=== PATIENT | female | born 1940 | race Caucasian/White ===

== ENCOUNTER 2017-08-14 14:32 | Inpatient (IN) | payer MEDICARE ==
[~2017-08-14] VITALS: Ht 147.3 cm; Wt 53.2 kg
[~2017-08-14 14:32] MED LIST: ASPIRIN CHEW81 MG PO; CLONAZEPAM0.5 MG PO; DEXILANT60 MG PO; DICYCLOMINE HCL10 MG PO; GABAPENTIN300 MG PO; HUMALOG100 UNIT/1 SQ; HYDROCODON-ACE1 EA12 PO; LANTUS100 UNITS/ SQ; LEVOTHYROXINE100 MCG PO; LIPITOR20 MG PO; LOSARTAN-HCTZ1 EAC2 PO; METOPROLOL TART25 MG PO; NORCO 5-325 TA1 EACH PO; NORCO 7.5-3251 EACH PO; ONDANSETRON ODT8 MG PO; PLAVIX75 MG PO; PROTONIX40 MG PO; RESTORIL15 MG PO; ROPINIROLE PO
[2017-08-14] MEDS ORDERED: SODIUM CHLORIDE 0.9% 1000ML 1,000 ML IV STA (15:24)
--- NOTE | 2017-08-14 15:24 | Diagnostic Imaging Report ---
EXAMINATION: Head CT HISTORY: Status post fall, trauma, pain COMPARISON: Head CT from 03/20/2014 TECHNIQUE: Multidetector axial images were obtained without contrast from the foramen magnum to the vertex . The images were reconstructed using brain and bone algorithms. Thin section brain images were reformatted into coronal and sagittal planes. Motion/streaking artifact limits the evaluation of the skull base and posterior cranial fossa. FINDINGS: Parenchyma: 1. Persistent mild chronic microvascular ischemic changes. Otherwise no abnormal density in the brain parenchyma. 2. No mass or hemorrhage. No CT evidence of acute territorial vascular insult. Extra-axial spaces:No abnormal density. No extra-axial fluid collections Brain volume: Normal for age. Ventricles: No hydrocephalus or displacement. Arteries: No density suggestive of thrombus. Dural sinuses: No abnormal density. Extra-axial spaces: No abnormal density. Foramen magnum: No mass, Chiari malformation, or basilar invagination. Sella: No obvious mass. Paranasal/mastoid sinuses: Imaged portions unremarkable. Skull/Scalp: No lytic or blastic lesions. No fractures. IMPRESSION: 1. No acute post traumatic intracranial abnormalities, particularly no hemorrhage. 2. Unchanged mild chronic microvascular ischemic changes. Signed by: Dr. Svetlana Cortes M.D. on 08/14/2017 3:20 PM
[2017-08-14] MEDS ORDERED: CEFTRIAXONE SOD 1 GM VIAL IV ONE (15:30)
[2017-08-14] MEDS ORDERED: KETOROLAC TROMETHAMINE 30 MG/ML VIAL IV ONE (15:45)
--- NOTE | 2017-08-14 16:17 | Diagnostic Imaging Report ---
PROCEDURE:HIP RIGHT 2-3 VW (+/- PELVIS) COMPARISON:To priors. INDICATIONS:FALL, RIGHT HIP AND LEG PAIN FINDINGS: BONES:No evidence of fracture or dislocation. Mild degenerative changes are present. The adjacent pubic rami appear intact. There is no diastases the pubic symphysis and sacroiliac joints. The left hip is intact with mild degenerative changes. There are moderate changes of the lower lumbar spine superimposed on dextroscoliosis. SOFT TISSUES:There are calcifications in the soft tissues and in the vascular structures. OTHER:Negative. CONCLUSION: No evidence of fracture or dislocation by x-ray. If there is persistent clinical concern, limited CT of the bony pelvis performed for further characterization. Dictated by: Kassandra Watt M.D. on 08/14/2017 at 16:27 Electronically approved by: Kassandra Watt M.D. on 08/14/2017 at 16:27
--- NOTE | 2017-08-14 16:19 | Diagnostic Imaging Report ---
PROCEDURE:FEMUR TWO VIEW MINIMUM RIGHT COMPARISON:Hip x-rays performed at the same time INDICATIONS:FALL, RIGHT HIP AND LEG PAIN FINDINGS: There are mild degenerative changes of the right hip. The femur is intact and normally mineralized without focal osseous lesions. A traction enthesophyte arises from the greater trochanter. There are degenerative changes of the knee. Visualized bones of the pelvis are intact. There calcifications in the soft tissues and in the vascular structures. CONCLUSION: No evidence of fracture or dislocation. Degenerative changes as described above. Dictated by: Kassandra Watt M.D. on 08/14/2017 at 16:29 Electronically approved by: Kassandra Watt M.D. on 08/14/2017 at 16:29
--- NOTE | 2017-08-14 18:36 | Diagnostic Imaging Report ---
TECHNIQUE: Magnetic resonance imaging of the pelvis and right hip was performed WITHOUT injected contrast using standard departmental protocols. HISTORY: Right hip pain COMPARISON: None. FINDINGS: Bone and bone marrow: Nondisplaced fracture of the intertrochanteric region of the right femur. No other fracture. Articular cartilage: Partial thickness cartilage loss. Soft tissues: Iliopsoas tendons intact. Mild proximal branching origin tendinosis. Gluteal tendon insertions are intact. Soft tissue edema adjacent to the right proximal femur. IMPRESSION: Nondisplaced right intertrochanteric femur fracture. Signed by: Dr. Kahlil Lassiter M.D. on 08/14/2017 6:33 PM
[2017-08-14] MEDS ORDERED: MORPHINE SULFATE 2 MG/ML SYR IV STA (19:57)
[2017-08-14 20:19] LABS: BASOPHILS # (AUTO) 0.1 (0.0-0.1); BASOPHILS % 0.5 % (0.0-1.0); EOSINOPHILS # (AUTO) 0.2 (0.0-0.4); EOSINOPHILS % 1.8 % (0.0-6.0); HEMATOCRIT 33.2 % (34.2-44.1); HEMOGLOBIN 11.3 g/dL (12.0-16.0); LYMPHOCYTES # (AUTO) 1.9 (1.0-3.2); LYMPHOCYTES % 20.4 % (18.0-39.1); MEAN CORPUSCULAR HEMOGLOBIN 28.6 pg (28-32); MEAN CORPUSCULAR VOLUME 84.1 fL (81-99); MONOCYTES # (AUTO) 0.6 (0.2-0.8); MONOCYTES % 6.9 % (4.4-11.3); NEUTROPHILS # (AUTO) 6.5 (2.1-6.9); NEUTROPHILS % 69.6 % (38.7-80.0); PLATELET COUNT 356 x10e3/uL (140-360); RED BLOOD COUNT 3.95 x10e6/uL (3.6-5.1); RED CELL DISTRIBUTION WIDTH 13.8 % (11.7-14.4)
[2017-08-14 20:26] LABS: INR 1.11; PROTHROMBIN TIME 13.5 seconds (11.9-14.5)
[2017-08-14 20:27] LABS: PARTIAL THROMBOPLASTIN TIME 27.2 seconds (23.8-35.5)
[2017-08-14] MEDS ORDERED: ASPIRIN 81 MG CHEW TAB PO ONE (20:30)
[2017-08-14 20:33] LABS: ALBUMIN 4.2 g/dL (3.5-5.0); ALBUMIN/GLOBULIN RATIO 1.1 (0.8-2.0); ANION GAP 15.3 mmol/L (8-16); CALCIUM 9.7 mg/dL (8.4-10.2); CREATININE, SERUM 1.07 mg/dL (0.57-1.11); POTASSIUM 4.3 mmol/L (3.5-5.1)
--- NOTE | 2017-08-14 20:46 | Diagnostic Imaging Report ---
Examination: Single AP view of the chest. COMPARISON: None. INDICATION: Preoperative evaluation DISCUSSION: Lines/tubes: None. Lungs: The lungs are well inflated and clear. No pneumonia or pulmonary edema. Pleura: There is no pleural effusion or pneumothorax. Heart and mediastinum: The heart and the mediastinum are unremarkable. Bones and soft tissues: No acute bony abnormalities. IMPRESSION: 1. No acute cardiopulmonary abnormalities. Signed by: Dr. Kahlil Lassiter M.D. on 08/14/2017 8:43 PM
[2017-08-14 20:50] LABS: BILIRUBIN,URINE NEGATIVE (NEGATIVE); CLARITY,URINE CLEAR (CLEAR); COLOR,URINE YELLOW (YELLOW); KETONES,URINE NEGATIVE (NEGATIVE); LEUKOCYTE ESTERASE ,URINE NEGATIVE (NEGATIVE); NITRITE,URINE NEGATIVE (NEGATIVE); PROTEIN,URINE DIPSTICK TRACE (NEGATIVE); URINE UROBILINOGEN 0.2 mg/dL (0.2 - 1)
[2017-08-14 20:58] LABS: CREATINE KINASE 68 IU/L (29-168)
[2017-08-14 21:07] LABS: EPITHELIAL CELLS,URINE RARE /LPF; MUCUS,URINE FEW (RARE); RBC,URINE 0-5 /HPF (0-5); WBC,URINE (MAN) 0-5 /HPF (0-5)
--- OUTSIDE RECORDS SUMMARY | 2017-08-14 21:56 | XMS REPORT ---
Author Author [facility] Address Unknown Phone Unavailable Care Team Providers Care Consumer Loan Processor Name Role Phone SARAHY RAMÍREZ Unavailable Unavailable Problems This patient has no known problems. Allergies, Adverse Reactions, Alerts This patient has no known allergies or adverse reactions. Medications This patient has no known medications. Results Test Description Test Time Test Comments Text Results Atomic Results Result Comments CHEST SINGLE (PORTABLE) [place] [address] Patient Name: DENISA SHIN MR #: [id number] : 1940 Age/Sex: 77/F Req #: [id number] Adm Physician: Ordered by: ANNI MEJIAS FIRST RESPONDER Report #: [id number] Location: ER Room/Bed: Procedure: [id number] DX/CHEST SINGLE (PORTABLE) Exam Date: Exam Time: REPORT STATUS: Signed Examination: Single AP view of the chest. COMPARISON: None. INDICATION: Preoperative evaluation DISCUSSION: Lines/tubes: None. Lungs: The lungs are well inflated and clear. No pneumonia or pulmonary edema. Pleura: There is no pleural effusion or pneumothorax. Heart and mediastinum: The heart and the mediastinum are unremarkable. Bones and soft tissues: No acute bony abnormalities. IMPRESSION: 1. No acute cardiopulmonary abnormalities. Signed by: Dr. Nathaniel Marie M.D. on 08/14/2017 8:43 PM Dictated By: NATHANIEL MARIE MD 42 Transcribed By: JAIME on 08/14/172042 COPY TO: ANNI MEJIAS NP MRI PELVIS WO [facility] [address] [address] Patient Name: DENISA SHIN MR #: [id number] : 1940 Age/Sex: 77/F Req #: [id number] Adm Physician: Ordered by: ANNI MEJIAS NP Report #: [id number] Location: ER Room/Bed: Procedure: [id number] MRI/MRI PELVIS WO Exam Date: Exam Time: REPORT STATUS: Signed TECHNIQUE: Magnetic resonance imaging of the pelvis and right hip was performed WITHOUT injected contrast using standard departmental protocols. HISTORY: Right hip pain COMPARISON: None. FINDINGS: Bone and bone marrow: Nondisplaced fracture of the intertrochanteric region of the right femur. No other fracture. Articular cartilage: Partial thickness cartilage loss. Soft tissues: Iliopsoas tendons intact. Mild proximal branching origin tendinosis. Gluteal tendon insertions are intact. Soft tissue edema adjacent to the right proximal femur. IMPRESSION: Nondisplaced right intertrochanteric femur fracture. Signed by: Dr. Nathaniel Marie M.D. on 06/2018 6:33 PM Dictated By: NATHANIEL MARIE MD 32 Transcribed By: JAIME on 08/14/171832 COPY TO: ANNI MEJIAS NP MRI HIP RIGHT WO [facility] [address] [address] Patient Name: DENISA SHIN MR #: [id number] : 1940 Age/Sex: 77/F Req #: [id number] Adm Physician: Ordered by: ANNI MEJIAS NP Report #: [id number] Location: ER Room/Bed: Procedure: [id number] MRI/MRI HIP RIGHT WO Exam Date: Exam Time: REPORT STATUS: Signed TECHNIQUE: Magnetic resonance imaging of the pelvis and right hip was performed WITHOUT injected contrast using standard departmental protocols. HISTORY: Right hip pain COMPARISON: None. FINDINGS: Bone and bone marrow: Nondisplaced fracture of the intertrochanteric region of the right femur. No other fracture. Articular cartilage: Partial thickness cartilage loss. Soft tissues: Iliopsoas tendons intact. Mild proximal branching origin tendinosis. Gluteal tendon insertions are intact. Soft tissue edema adjacent to the right proximal femur. IMPRESSION: Nondisplaced right intertrochanteric femur fracture. Signed by: Dr. Nathaniel Marie M.D. on 06/2018 6:33 PM Dictated By: NATHANIEL MARIE MD 32 Transcribed By: JAIME on 08/14/171832 COPY TO: ANNI MEJIAS FIRST RESPONDER CT BRAIN WO [facility] [address] [place] [address] Patient Name: DENISA SHIN MR #: [id number] : 1940 Age/Sex: 77/F Req #: [id number] Adm Physician: Ordered by: ANNI MEJIAS NP Report #: [id number] Location: ER Room/Bed: Procedure: [id number] CT/CT BRAIN WO Exam Date: Exam Time: REPORT STATUS: Signed EXAMINATION: Head CT HISTORY: Status post fall, trauma, pain COMPARISON: Head CT from 03/20/2014 TECHNIQUE : Multidetector axial images were obtained without contrast from the foramen magnum to the vertex . The images were reconstructed using brain and bone algorithms. Thin section brain images were reformatted into coronal and sagittal planes. Motion/streaking artifact limits the evaluation of the skull base and posterior cranial fossa. FINDINGS: Parenchyma: 1. Persistent mild chronic microvascular ischemic changes. Otherwise no abnormal density in the brain parenchyma. 2. No mass or hemorrhage. No CT evidence of acute territorial vascular insult. Extra-axial spaces:No abnormal density. No extra-axial fluid collections Brain volume: Normal for age. Ventricles: No hydrocephalus or displacement. Arteries : No density suggestive of thrombus. Dural sinuses: No abnormal density. Extra-axial spaces: No abnormal density. Foramen magnum : No mass, Chiari malformation, or basilar invagination. Sella: No obvious mass. Paranasal/mastoid sinuses: Imaged portions unremarkable. Skull/Scalp: No lytic or blastic lesions. No fractures. IMPRESSION: 1. No acute post traumatic intracranial abnormalities, particularly no hemorrhage. 2. Unchanged mild chronic microvascular ischemic changes. Signed by: Dr. Cathryn Cortes M.D. on 08/14/2017 3:20 PM Dictated By: CATHRYN CORTES MD 1520 COPY TO: ANNI MEJIAS FIRST RESPONDER HIP RIGHT 2-3 VW (+/- PELVIS) [place] [address] Patient Name: DENISA SHIN MR #: [id number] : 1940 Age/Sex: 77/F Req #: [id number] [facility] Physician: Ordered by: ANNI MEJIAS NP Report #: [id number] Location: ER Room/Bed: ___ Procedure: [id number] DX/HIP RIGHT 2-3 VW (+/- PELVIS) Exam Date: Exam Time: REPORT STATUS: Signed PROCEDURE: HIP RIGHT 2-3 VW (+/- PELVIS) COMPARISON: To priors. INDICATIONS: FALL, RIGHT HIP AND LEG PAIN FINDINGS: BONES: No evidence of fracture or dislocation. Mild degenerative changes are present. The adjacent pubic rami appear intact. There is no diastases the pubic symphysis and sacroiliac joints. The left hip is intact with mild degenerative changes. There are moderate changes of the lower lumbar spine superimposed on dextroscoliosis. SOFT TISSUES: There are calcifications in the soft tissues and in the vascular structures. OTHER: Negative. CONCLUSION: No evidence of fracture or dislocation by x-ray. If there is persistent clinical concern, limited CT of the bony pelvis performed for further characterization. Dictated by: Kassandra Watt M.D. on 08/14/2017 at 16:27 Electronically approved by: Kassandra Watt M.D. on 08/14/2017 at 16:27 Dictated By: KASSANDRA WATT MD 26 Transcribed By: MEENA on 08/14/171626 COPY TO: ANNI MEJIAS NP FEMUR TWO VIEW MINIMUM RIGHT [place] [address] Patient Name: DENISA SHIN MR #: [id number] : 1940 Age/Sex: 77/F Req #: [id number] Adm Physician: Ordered by: ANNI MEJIAS NP Report #: [id number] Location: ER Room/Bed: ___ Procedure: [id number] DX/FEMUR TWO VIEW MINIMUM RIGHT Exam Date: Exam Time: REPORT STATUS: Signed PROCEDURE: FEMUR TWO VIEW MINIMUM RIGHT COMPARISON: Hip x-rays performed at the same time INDICATIONS: FALL, RIGHT HIP AND LEG PAIN FINDINGS: There are mild degenerative changes of the right hip. The femur is intact and normally mineralized without focal osseous lesions. A traction enthesophyte arises from the greater trochanter. There are degenerative changes of the knee. Visualized bones of the pelvis are intact. There calcifications in the soft tissues and in the vascular structures. CONCLUSION: No evidence of fracture or dislocation. Degenerative changes as described above. Dictated by: Kassandra Watt M.D. on 08/14/2017 at 16:29 Electronically approved by: Kassandra Watt M.D. on 08/14/2017 at 16:29 Dictated By: KASSANDRA WATT MD Transcribed By: MEENA on 08/14/176 COPY TO: ANNI MEJIAS NP
[2017-08-14 22:00] VITALS: BP 162/71
[2017-08-14] MEDS: INSULIN REGULAR, HUMAN 100 UNIT/1 ML 3ML VIAL SQ SCH (22:03)
[2017-08-15] VITALS (9 sets, daily range): BP systolic 119–166; BP diastolic 63–71
[2017-08-15] MEDS: ONDANSETRON HCL INJ 2 MG/ML VIAL IV PRN ×3 (02:48→15:48)
[2017-08-15] MEDS: MORPHINE SULFATE 2 MG/ML SYR IV PRN ×3 (02:48→15:48)
[2017-08-15] MEDS: INSULIN REGULAR, HUMAN 100 UNIT/1 ML 3ML VIAL SQ SCH ×4 (07:30→20:19)
--- NOTE | 2017-08-15 11:11 | History and Physical ---
CHIEF COMPLAINT: Fall. HISTORY OF PRESENT ILLNESS: A 77-year-old female patient with a history of diabetes mellitus, neuropathy, tripped and fell at home 5 days ago. Patient was having pain on weightbearing, and not used for a few days. Patient came to the emergency room. Patient had an x-ray that was negative. MRI positive findings for nondisplaced fracture of the intertrochanteric right femur. Patient is admitted for fixation. PAST MEDICAL HISTORY: Diabetes mellitus, diabetic neuropathy, retinopathy, esophageal stricture with dilatation, hypertension, chronic pain, osteoporosis. MEDICATIONS: Insulin, [place], gabapentin. PERSONAL HISTORY: Denies smoking, alcohol or drugs. PHYSICAL EXAMINATION VITALS: Blood pressure 118/70, pulse 80. HEENT: Normal. NECK: Supple. LUNGS: Clear. ABDOMEN: Soft. Bowel sounds normal. EXTREMITIES: Right femoral hip tender. MRA with nondisplaced right intertrochanteric femur fracture. ASSESSMENT 1. Right intertrochanteric femur fracture. 2. Diabetes mellitus. 3. Fall. PLAN: Admit the patient. Ortho consultation. Resume home medications. Pain control. Job#: [id number] IDANIA
[2017-08-15] MEDS: SODIUM CHLORIDE 0.45% 1,000 ML IV SCH ×2 (12:14→22:00)
[2017-08-15] MEDS: GABAPENTIN 300 MG CAP PO SCH ×2 (15:48→20:18)
[2017-08-15] MEDS: INSULIN DETEMIR 100 UNIT/ML PEN SQ SCH (16:38)
[2017-08-15] MEDS: DEXTROSE 50% SYRINGE 50 ML IV PRN (16:58)
[2017-08-15] MEDS: METOPROLOL TARTRATE 25 MG TAB PO SCH (17:14)
[2017-08-15] MEDS: TEMAZEPAM 15 MG CAP PO SCH (20:18)
[2017-08-15] MEDS ORDERED: SODIUM CHLORIDE 0.45% 1,000 ML IV SCH (23:00)
[2017-08-16] VITALS: BP 152/72
[2017-08-16] MEDS: MORPHINE SULFATE 2 MG/ML SYR IV PRN ×4 (00:07→16:40)
[2017-08-16] MEDS: ONDANSETRON HCL INJ 2 MG/ML VIAL IV PRN (00:07)
[2017-08-16] MEDS: PANTOPRAZOLE SODIUM 40 MG SUSPDR.PKT PO SCH (08:09)
[2017-08-16] MEDS: INSULIN REGULAR, HUMAN 100 UNIT/1 ML 3ML VIAL SQ SCH ×4 (08:11→21:03)
[2017-08-16] MEDS: SODIUM CHLORIDE 0.45% 1,000 ML IV SCH ×2 (08:11→11:44)
[2017-08-16] MEDS: CLONAZEPAM 0.5 MG TAB PO SCH (08:12)
[2017-08-16] MEDS: INSULIN DETEMIR 100 UNIT/ML PEN SQ SCH ×2 (08:13→17:10)
[2017-08-16] MEDS: METOPROLOL TARTRATE 25 MG TAB PO SCH ×2 (08:13→17:10)
[2017-08-16] MEDS: DICYCLOMINE HCL 10 MG CAP PO SCH (08:13)
[2017-08-16] MEDS: GABAPENTIN 300 MG CAP PO SCH ×3 (08:13→21:03)
[2017-08-16 08:44] VITALS: BP 167/73
[2017-08-16 09:30] LABS: ANION GAP 15.3 mmol/L (8-16); CALCIUM 8.6 mg/dL (8.4-10.2); CREATININE, SERUM 1.05 mg/dL (0.57-1.11); POTASSIUM 4.3 mmol/L (3.5-5.1)
[2017-08-16 09:56] VITALS: BP 167/73
[2017-08-16 12:18] VITALS: BP 156/69
[2017-08-16] MEDS ORDERED: SODIUM CHLORIDE 0.9% 250ML 250 ML IV ONE (14:15)
[2017-08-16] MEDS: SODIUM CHLORIDE 0.9% 1000ML 1,000 ML IV SCH (15:50)
[2017-08-16] MEDS ORDERED: SODIUM CHLORIDE 0.9% 1000ML 1,000 ML ONE (15:53)
[2017-08-16 16:38] VITALS: BP 128/59
[2017-08-16 17:48] LABS: BLOOD UREA NITROGEN 13 mg/dL (7-26); BUN/CREATININE RATIO 15 (6-25); CALCIUM 8.4 mg/dL (8.4-10.2); CARBON DIOXIDE 21 mmol/L (22-29); CHLORIDE 90 mmol/L (98-107); CREATININE, SERUM 0.89 mg/dL (0.57-1.11); EST GLOMERULAR FILTRATION RATE > 60 ML/MIN (60-); GLUCOSE 302 mg/dL (74-118); SODIUM 122 mmol/L (136-145)
[2017-08-16 18:10] LABS: THYROID STIMULATING HORMONE 5.516 uIU/mL (0.350-4.940)
[2017-08-16] MEDS ORDERED: MAGNESIUM SULFATE 2GM/50ML 50 ML IV ONE ×2 (18:15→23:00)
[2017-08-16 20:00] VITALS: BP 116/67
[2017-08-16] MEDS: ATORVASTATIN 40 MG TAB PO SCH (21:03)
[2017-08-16] MEDS: TEMAZEPAM 15 MG CAP PO SCH (21:03)
[2017-08-17] VITALS (9 sets, daily range): BP systolic 137–173; BP diastolic 64–74
[2017-08-17] MEDS ORDERED: ENOXAPARIN SOD INJ 40 MG/0.4 ML SYR SC ONE (02:30)
[2017-08-17] MEDS: ACETAMINOPHEN 325 MG TAB PO PRN ×3 (02:35→23:51)
[2017-08-17] MEDS ORDERED: CEFAZOLIN SOD 2 GM in WATER STERILE 10ML VIAL 10 ML IV ONE (04:00)
[2017-08-17] MEDS ORDERED: CEFAZOLIN SOD 2 GM in WATER STERILE 10ML VIAL 10 ML IV SCH (04:15)
[2017-08-17] MEDS: LEVOTHYROXINE SODIUM 100 MCG TAB PO SCH (05:36)
[2017-08-17] MEDS: MORPHINE SULFATE 2 MG/ML SYR IV PRN ×2 (06:07→14:57)
[2017-08-17] MEDS: SODIUM CHLORIDE 0.9% 1000ML 1,000 ML IV SCH ×3 (06:20→19:59)
[2017-08-17 07:01] LABS: BASOPHILS % 0.3 % (0.0-1.0); EOSINOPHILS # (AUTO) 0.1 (0.0-0.4); EOSINOPHILS % 0.4 % (0.0-6.0); HEMATOCRIT 27.5 % (34.2-44.1); HEMOGLOBIN 9.1 g/dL (12.0-16.0); LYMPHOCYTES # (AUTO) 1.5 (1.0-3.2); LYMPHOCYTES % 12.3 % (18.0-39.1); MEAN CORPUSCULAR HEMOGLOBIN 28.7 pg (28-32); MEAN CORPUSCULAR HGB CONC 33.1 g/dL (31-35); MEAN CORPUSCULAR VOLUME 86.8 fL (81-99); MONOCYTES # (AUTO) 1.1 (0.2-0.8); MONOCYTES % 9.1 % (4.4-11.3); NEUTROPHILS # (AUTO) 9.2 (2.1-6.9); NEUTROPHILS % 77.5 % (38.7-80.0); PLATELET COUNT 290 x10e3/uL (140-360); RED BLOOD COUNT 3.17 x10e6/uL (3.6-5.1); RED CELL DISTRIBUTION WIDTH 13.6 % (11.7-14.4)
[2017-08-17 07:24] LABS: ALANINE AMINOTRANSFERASE 6 IU/L (0-55); ALBUMIN 2.9 g/dL (3.5-5.0); ALBUMIN/GLOBULIN RATIO 0.9 (0.8-2.0); ALKALINE PHOSPHATASE 101 IU/L (40-150); ANION GAP 13.9 mmol/L (8-16); BLOOD UREA NITROGEN 11 mg/dL (7-26); BUN/CREATININE RATIO 13 (6-25); CALCIUM 8.6 mg/dL (8.4-10.2); CARBON DIOXIDE 20 mmol/L (22-29); CHLORIDE 94 mmol/L (98-107); CREATININE, SERUM 0.86 mg/dL (0.57-1.11); EST GLOMERULAR FILTRATION RATE > 60 ML/MIN (60-); GLUCOSE 230 mg/dL (74-118); POTASSIUM 3.9 mmol/L (3.5-5.1); SODIUM 124 mmol/L (136-145)
[2017-08-17] MEDS: INSULIN REGULAR, HUMAN 100 UNIT/1 ML 3ML VIAL SQ SCH ×4 (08:09→20:39)
[2017-08-17] MEDS: DICYCLOMINE HCL 10 MG CAP PO SCH (08:16)
[2017-08-17] MEDS: CLONAZEPAM 0.5 MG TAB PO SCH (08:16)
[2017-08-17] MEDS: METOPROLOL TARTRATE 25 MG TAB PO SCH ×2 (08:16→17:24)
[2017-08-17] MEDS: GABAPENTIN 300 MG CAP PO SCH ×3 (08:16→20:32)
[2017-08-17] MEDS: INSULIN DETEMIR 100 UNIT/ML PEN SQ SCH ×2 (08:16→17:24)
[2017-08-17] MEDS: PANTOPRAZOLE SODIUM 40 MG SUSPDR.PKT PO SCH (08:16)
[2017-08-17] MEDS ORDERED: CITRATE OF MAGNESIA 300ML BOTTLE PO ONE (09:00)
[2017-08-17] MEDS: SODIUM CHLORIDE 1 GM TAB PO SCH ×2 (15:16→20:32)
[2017-08-17 15:19] LABS: BILIRUBIN,URINE NEGATIVE (NEGATIVE); KETONES,URINE NEGATIVE (NEGATIVE); LEUKOCYTE ESTERASE ,URINE NEGATIVE (NEGATIVE); NITRITE,URINE NEGATIVE (NEGATIVE); URINE UROBILINOGEN 0.2 mg/dL (0.2 - 1)
[2017-08-17 15:20] LABS: CLARITY,URINE SL CLOUDY (CLEAR); COLOR,URINE YELLOW (YELLOW); PROTEIN,URINE DIPSTICK TRACE (NEGATIVE)
--- NOTE | 2017-08-17 15:47 | Consultation ---
DATE OF CONSULTATION: August 17, 2017 HISTORY OF PRESENT ILLNESS: A 77-year-old female with right hip fracture, currently on the floor. Renal consulted for hyponatremia. Most recent labs showed sodium 124, potassium 3.9, chloride 94, bicarbonate 20, BUN 11, and creatinine 0.86. Patient is awake and alert, was actually asleep when I walked in. She denies any specific complaints and following all commands. Patient admits that she has had prior episodes of hyponatremia. She has history of hypothyroidism, type 2 diabetes, peripheral neuropathy, retinopathy, prior esophageal strictures and dilatation, history of chronic pain, and osteoporosis. SOCIAL HISTORY: Does not smoke or drink. ALLERGIES: NO APPARENT DRUG ALLERGIES. CURRENT MEDICATIONS: Patient is on clonazepam, metoprolol, Tylenol p.r.n., cefazolin, dicyclomine, pantoprazole, insulin, gabapentin, atorvastatin, and levothyroxine 100 mcg daily. Also on losartan and hydrochlorothiazide at home which has not been renewed here. PHYSICAL EXAMINATION GENERAL: Awake and alert, lying supine, thin-built female, in no apparent distress. Has a relatively short stature, in no apparent distress. VITALS: Blood pressure of 159/71, pulse rate 77, afebrile, and respiratory rate 18. HEENT: Oral mucosa dry. Neck veins flat. LUNGS: Supine exam, but relatively clear. HEART: S1, S2 audible. ABDOMEN: Otherwise soft and nontender. LOWER EXTREMITY: No edema. Contraction noted in lower extremity. IMPRESSION 1. Hyponatremia, hyposmolar state, most likely syndrome of inappropriate antidiuretic hormone, was also on hydrochlorothiazide. So, this could be a combination of appropriate release of ADH secondary to pain and sodium loss due to hydrochlorothiazide. Nevertheless, we will put her on 1000 mL p.o. fluid restriction. Regular salt diet. 2. No sodium restriction. Will place her on sodium chloride tablets, 2 tablets p.o. t.i.d.. Mild distal RTA noted. We will obtain uric acid and thyroid function tests. Please see orders. Job#: [id number] VAS
[2017-08-17] MEDS: ENOXAPARIN SOD INJ 40 MG/0.4 ML SYR SC SCH (17:32)
[2017-08-17] MEDS: TEMAZEPAM 15 MG CAP PO SCH (20:32)
[2017-08-17] MEDS: ATORVASTATIN 40 MG TAB PO SCH (20:32)
[2017-08-18 00:33] VITALS: BP 138/65
[2017-08-18] MEDS: SODIUM CHLORIDE 0.9% 1000ML 1,000 ML IV SCH (05:59)
[2017-08-18] MEDS: LEVOTHYROXINE SODIUM 100 MCG TAB PO SCH ×2 (05:59→20:32)
[2017-08-18 07:29] LABS: BASOPHILS % 0.1 % (0.0-1.0); HEMATOCRIT 26.6 % (34.2-44.1); LYMPHOCYTES # (AUTO) 0.8 (1.0-3.2); LYMPHOCYTES % 6.6 % (18.0-39.1); MEAN CORPUSCULAR HEMOGLOBIN 28.9 pg (28-32); MEAN CORPUSCULAR HGB CONC 33.8 g/dL (31-35); MEAN CORPUSCULAR VOLUME 85.5 fL (81-99); NEUTROPHILS # (AUTO) 10.2 (2.1-6.9); NEUTROPHILS % 84.6 % (38.7-80.0); PLATELET COUNT 307 x10e3/uL (140-360); RED BLOOD COUNT 3.11 x10e6/uL (3.6-5.1); RED CELL DISTRIBUTION WIDTH 13.8 % (11.7-14.4)
[2017-08-18] MEDS: INSULIN REGULAR, HUMAN 100 UNIT/1 ML 3ML VIAL SQ SCH ×4 (07:30→21:00)
[2017-08-18 07:38] LABS: ALANINE AMINOTRANSFERASE 11 IU/L (0-55); ALBUMIN 2.5 g/dL (3.5-5.0); ALBUMIN/GLOBULIN RATIO 0.7 (0.8-2.0); ALKALINE PHOSPHATASE 110 IU/L (40-150); ANION GAP 10.8 mmol/L (8-16); BLOOD UREA NITROGEN 11 mg/dL (7-26); BUN/CREATININE RATIO 15 (6-25); CALCIUM 8.9 mg/dL (8.4-10.2); CARBON DIOXIDE 24 mmol/L (22-29); CHLORIDE 100 mmol/L (98-107); CREATININE, SERUM 0.72 mg/dL (0.57-1.11); EST GLOMERULAR FILTRATION RATE > 60 ML/MIN (60-); POTASSIUM 3.8 mmol/L (3.5-5.1); SODIUM 131 mmol/L (136-145)
[2017-08-18 07:39] LABS: GLUCOSE 31 mg/dL (74-118)
[2017-08-18] MEDS: DEXTROSE 50% SYRINGE 50 ML IV PRN (07:40)
[2017-08-18 08:06] VITALS: BP 132/60
[2017-08-18] MEDS: INSULIN DETEMIR 100 UNIT/ML PEN SQ SCH ×2 (09:00→17:00)
[2017-08-18 10:15] VITALS: BP 132/60
[2017-08-18] MEDS: PANTOPRAZOLE SODIUM 40 MG SUSPDR.PKT PO SCH (10:15)
[2017-08-18] MEDS: METOPROLOL TARTRATE 25 MG TAB PO SCH ×2 (10:15→17:40)
[2017-08-18] MEDS: GABAPENTIN 300 MG CAP PO SCH ×3 (10:15→21:00)
[2017-08-18] MEDS: SODIUM CHLORIDE 1 GM TAB PO SCH ×3 (10:15→21:00)
[2017-08-18] MEDS: CLONAZEPAM 0.5 MG TAB PO SCH (10:15)
[2017-08-18] MEDS: DICYCLOMINE HCL 10 MG CAP PO SCH (10:15)
[2017-08-18 12:00] VITALS: BP 180/79
[2017-08-18] MEDS ORDERED: CEFAZOLIN SOD 1 GM/NS 50ML 50 ML IV ONE (13:15)
[2017-08-18] MEDS ORDERED: CEFAZOLIN SOD 1 GM VIAL IV PRN (13:45)
[2017-08-18] MEDS: ENOXAPARIN SOD INJ 40 MG/0.4 ML SYR SC SCH (17:00)
[2017-08-18] MEDS ORDERED: HEPARIN SOD/SOD CHLORIDE 1,000 ML ONE (17:26)
[2017-08-18] MEDS: ACETAMINOPHEN 325 MG TAB PO PRN (18:00)
[2017-08-18] MEDS: MORPHINE SULFATE 2 MG/ML SYR IV PRN (18:00)
[2017-08-18] MEDS ORDERED: CLONIDINE HCL 0.2 MG/24 HR 1 EA PATCH TOP SCH (19:15)
[2017-08-18 20:00] VITALS: BP 143/88
[2017-08-18] MEDS: ATORVASTATIN 40 MG TAB PO SCH (21:00)
[2017-08-18] MEDS: TEMAZEPAM 15 MG CAP PO SCH (21:00)
[2017-08-18] MEDS ORDERED: SODIUM CHLORIDE 0.9% 1000ML 1,000 ML IV SCH (23:59)
[2017-08-19] VITALS (8 sets, daily range): BP systolic 139–188; BP diastolic 62–98
[2017-08-19] MEDS: SODIUM CHLORIDE 0.9% 1000ML 1,000 ML IV SCH ×2 (00:20→21:51)
[2017-08-19] MEDS: METOPROLOL TARTRATE 25 MG TAB PO SCH ×2 (07:27→16:30)
[2017-08-19] MEDS: MORPHINE SULFATE 2 MG/ML SYR IV PRN (07:27)
[2017-08-19] MEDS: ACETAMINOPHEN 325 MG TAB PO PRN (07:27)
[2017-08-19] MEDS: PANTOPRAZOLE SODIUM 40 MG SUSPDR.PKT PO SCH (07:30)
[2017-08-19] MEDS: INSULIN REGULAR, HUMAN 100 UNIT/1 ML 3ML VIAL SQ SCH ×4 (07:30→21:53)
[2017-08-19 08:04] LABS: ALANINE AMINOTRANSFERASE 15 IU/L (0-55); ALBUMIN 2.6 g/dL (3.5-5.0); ALBUMIN/GLOBULIN RATIO 0.6 (0.8-2.0); ALKALINE PHOSPHATASE 119 IU/L (40-150); BLOOD UREA NITROGEN 10 mg/dL (7-26); BUN/CREATININE RATIO 13 (6-25); CALCIUM 9.3 mg/dL (8.4-10.2); CARBON DIOXIDE 24 mmol/L (22-29); CHLORIDE 97 mmol/L (98-107); CREATININE, SERUM 0.76 mg/dL (0.57-1.11); EST GLOMERULAR FILTRATION RATE > 60 ML/MIN (60-); GLUCOSE 97 mg/dL (74-118); SODIUM 131 mmol/L (136-145)
[2017-08-19] MEDS: CLONAZEPAM 0.5 MG TAB PO SCH (09:00)
[2017-08-19] MEDS: SODIUM CHLORIDE 1 GM TAB PO SCH ×3 (09:00→21:52)
[2017-08-19] MEDS: DICYCLOMINE HCL 10 MG CAP PO SCH (09:00)
[2017-08-19] MEDS: GABAPENTIN 300 MG CAP PO SCH ×3 (09:00→21:52)
[2017-08-19] MEDS: INSULIN DETEMIR 100 UNIT/ML PEN SQ SCH (09:00)
[2017-08-19] MEDS ORDERED: ACETAMINOPHEN 1000 MG/100 ML IV PRN (10:45)
[2017-08-19] MEDS ORDERED: DIPHENHYDRAMINE HCL INJ 50 MG/ML VIAL IM/IV PRN (10:45)
[2017-08-19] MEDS ORDERED: NALOXONE HCL INJ 0.4 MG/ML AMP IV PRN (10:45)
[2017-08-19] MEDS ORDERED: HYDROMORPHONE 0.2MG/ML-SOD CHL 30ML PCA SYRINGE IV PRN (10:45)
[2017-08-19] MEDS ORDERED: ONDANSETRON HCL INJ 2 MG/ML VIAL IV PRN (10:45)
[2017-08-19] MEDS ORDERED: PROMETHAZINE HCL (IM) 25 MG/ML VIAL INJ PRN (10:45)
[2017-08-19] MEDS ORDERED: FENTANYL CITRATE/PF 100MCG/2 ML INJ ONE ×2 (10:57→14:41)
[2017-08-19] MEDS ORDERED: MORPHINE SULFATE 2 MG/ML SYR ONE ×2 (11:31→11:48)
[2017-08-19] MEDS ORDERED: LABETALOL HCL 5MG/ML MDV 20 ML ONE (11:31)
[2017-08-19] MEDS ORDERED: HYDROMORPHONE 0.2MG/ML-SOD CHL 30ML PCA SYRINGE IV ONE (12:04)
--- NOTE | 2017-08-19 13:00 | Diagnostic Imaging Report ---
HIP RIGHT ONE VW (+/- PELVIS), PELVIS AP 1-2 VIEWS HISTORY: Closed, postop COMPARISON: Hip and pelvic MRI 08/14/2017 FINDINGS: See impression. IMPRESSION: Postsurgical changes related to placement of a right femoral intramedullary dread without radiographically apparent complications. Signed by: DR. Van Stern MD on 08/19/2017 12:56 PM
[2017-08-19] MEDS ORDERED: ROCURONIUM BROMIDE 10 MG/ML 5ML VIAL ONE (13:42)
[2017-08-19] MEDS ORDERED: PROPOFOL IV EMULSION 10 MG/ML 20 ML VIAL ONE (13:42)
[2017-08-19] MEDS ORDERED: ONDANSETRON HCL INJ 2 MG/ML VIAL ONE (13:42)
[2017-08-19] MEDS ORDERED: LIDOCAINE HCL 2% LOCAL INJ 5 ML SDV VIAL INJ ONE (13:42)
[2017-08-19] MEDS ORDERED: EPHEDRINE SULFATE INJ 50 MG/10 ML SYR ONE (13:42)
[2017-08-19] MEDS ORDERED: SEVOFLURANE INHAL SOLN 250 ML PEN BTL ONE (13:42)
[2017-08-19] MEDS ORDERED: DEXAMETHASONE SOD PHOS INJ 4 MG/ML VIAL ONE (13:42)
[2017-08-19] MEDS ORDERED: CEFAZOLIN SOD 1 GM/NS 50ML 50 ML IV SCH (14:00)
[2017-08-19] MEDS ORDERED: PROMETHAZINE 25MG/ NS 50ML (IV) IV PRN (14:45)
[2017-08-19] MEDS: CEFAZOLIN SOD 1 GM VIAL IV SCH ×2 (14:53→21:53)
[2017-08-19] MEDS: ENOXAPARIN SOD INJ 40 MG/0.4 ML SYR SC SCH (16:31)
[2017-08-19] MEDS: TEMAZEPAM 15 MG CAP PO SCH (21:52)
[2017-08-19] MEDS: ATORVASTATIN 40 MG TAB PO SCH (21:52)
[2017-08-20] VITALS (7 sets, daily range): BP systolic 103–150; BP diastolic 50–72
[2017-08-20] MEDS: LEVOTHYROXINE SODIUM 100 MCG TAB PO SCH (05:26)
[2017-08-20] MEDS: CEFAZOLIN SOD 1 GM VIAL IV SCH (05:26)
[2017-08-20] MEDS: SODIUM CHLORIDE 0.9% 1000ML 1,000 ML IV SCH ×3 (06:27→16:32)
[2017-08-20 07:21] LABS: HEMATOCRIT 20.9 % (34.2-44.1)
[2017-08-20] MEDS: PANTOPRAZOLE SODIUM 40 MG SUSPDR.PKT PO SCH (07:30)
[2017-08-20] MEDS: INSULIN REGULAR, HUMAN 100 UNIT/1 ML 3ML VIAL SQ SCH ×4 (07:30→21:00)
[2017-08-20] MEDS: INSULIN DETEMIR 100 UNIT/ML PEN SQ SCH ×3 (07:35→17:00)
[2017-08-20] MEDS ORDERED: NITROGLYCERIN 0.4 MG SUBL SL PRN ×2 (08:00→12:00)
[2017-08-20] MEDS ORDERED: FAMOTIDINE 20 MG/2 ML VIAL IV ONE (08:00)
[2017-08-20] MEDS ORDERED: SODIUM CHLORIDE 0.9% 250ML 250 ML IV ONE (08:00)
[2017-08-20] MEDS ORDERED: ASPIRIN 81 MG CHEW TAB PO ONE (08:00)
[2017-08-20] MEDS: DICYCLOMINE HCL 10 MG CAP PO SCH (08:49)
[2017-08-20 08:50] LABS: CREATINE KINASE MB 1.5 ng/mL (0-5.0)
[2017-08-20] MEDS: CLONAZEPAM 0.5 MG TAB PO SCH (08:50)
[2017-08-20] MEDS: SODIUM CHLORIDE 1 GM TAB PO SCH ×3 (08:50→22:05)
[2017-08-20] MEDS: METOPROLOL TARTRATE 25 MG TAB PO SCH ×2 (08:50→17:11)
[2017-08-20] MEDS: GABAPENTIN 300 MG CAP PO SCH ×3 (08:50→22:05)
--- NOTE | 2017-08-20 10:21 | Operative Report ---
DATE OF PROCEDURE: August 19, 2017 PREOPERATIVE DIAGNOSIS: Nondisplaced right intertrochanteric hip fracture. POSTOPERATIVE DIAGNOSIS: Nondisplaced right intertrochanteric hip fracture. OPERATION/PROCEDURE PERFORMED: Patient underwent a right short gamma nail. TIRE BUFFER: None. ANESTHESIA: General endotracheal intubation anesthesia. IV FLUIDS: Per the anesthesia record. BRIEF DESCRIPTION OF PATIENT'S OPERATIVE PROCEDURE: Ms. Mcginnis was taken to the operating room and placed in the supine position on the operating room table. Following induction of general anesthesia as well as endotracheal intubation, the patient's right lower extremity was examined under anesthesia. She was found to have no significant abnormalities other than mild swelling in the right thigh. The patient's right lower extremity was placed in well-padded longitudinal traction and left lower extremity was placed in well-padded lithotomy position on the fracture table. Fluoroscopic evaluation of the hip joint demonstrated no evidence of intertrochanteric hip fracture. The patient's injury had been identified with an MRI examination upon admission. The patient's thigh and flank were prepped and draped in standard surgical fashion. Incision was created roughly at the tip of the trochanter. This incision was carried through skin only. Blunt dissection was used to deepen the incision to the level of the greater trochanter. An awl was placed on the tip of trochanter and the awl was advanced within the femur with guidance of fluoroscopy in both the AP and lateral planes. A guidewire was then placed within the medullary canal of the femur. A one-step reamer was then used to create a channel for the implant. The isthmus was found to be quite narrow, so sequential reaming was performed to allow for passage of the implant. The implant was then inserted without difficulty. A 2nd incision was created along the lateral aspect of the femur and the dissection was carried to the level of the lateral aspect of the femur. The guide for the compression screw was advanced against the lateral aspect of the femur and the guidepin was advanced from lateral to medial through the neck, into the head of the femur. Position of guidepin was again checked using fluoroscopy and found to be appropriate. Measurements were taken and a reamer was used to create a channel for the implant. A compression screw was then placed across the patient's fracture site, and this compression screw was then locked to allow for further compression, but prevent rotation. All wounds were then copiously irrigated and closed in a multilayer fashion. Sterile dressings were applied and the patient was then awakened and taken to postanesthesia care unit in stable condition. Job#: [id number] DR DEAN
[2017-08-20] MEDS ORDERED: HYDRALAZINE HCL 20 MG/ML VIAL IV PRN (12:00)
[2017-08-20] MEDS ORDERED: METOPROLOL TARTRATE INJ 1 MG/ML VIAL IV PRN (12:00)
[2017-08-20 12:48] LABS: CHOL/HDL RATIO 4.1 (3.0-3.6); MAGNESIUM 1.5 MG/DL (1.3-2.1); PHOSPHORUS 3.2 MG/DL (2.3-4.7)
[2017-08-20 13:08] LABS: THYROID STIMULATING HORMONE 5.356 uIU/mL (0.350-4.940)
[2017-08-20] MEDS: RIVAROXABAN 10 MG TABLET PO SCH (17:11)
[2017-08-20] MEDS: ENOXAPARIN SOD INJ 40 MG/0.4 ML SYR SC SCH (17:13)
[2017-08-20] MEDS: ATORVASTATIN 40 MG TAB PO SCH (22:05)
[2017-08-20] MEDS: TEMAZEPAM 15 MG CAP PO SCH (22:05)
[2017-08-21] VITALS (8 sets, daily range): BP systolic 132–170; BP diastolic 63–91
[2017-08-21] MEDS: SODIUM CHLORIDE 0.9% 1000ML 1,000 ML IV SCH ×3 (02:32→22:32)
[2017-08-21] MEDS: LEVOTHYROXINE SODIUM 100 MCG TAB PO SCH (05:04)
[2017-08-21] MEDS: ACETAMINOPHEN 325 MG TAB PO PRN (05:27)
[2017-08-21 07:01] LABS: HEMATOCRIT 27.9 % (34.2-44.1); HEMOGLOBIN 9.6 g/dL (12.0-16.0)
[2017-08-21] MEDS: INSULIN REGULAR, HUMAN 100 UNIT/1 ML 3ML VIAL SQ SCH ×4 (07:30→21:00)
[2017-08-21] MEDS: INSULIN DETEMIR 100 UNIT/ML PEN SQ SCH ×2 (08:19→16:58)
[2017-08-21] MEDS: CLONAZEPAM 0.5 MG TAB PO SCH (08:19)
[2017-08-21] MEDS: PANTOPRAZOLE SODIUM 40 MG SUSPDR.PKT PO SCH (08:19)
[2017-08-21] MEDS: DICYCLOMINE HCL 10 MG CAP PO SCH (08:19)
[2017-08-21] MEDS: SODIUM CHLORIDE 1 GM TAB PO SCH ×3 (08:19→21:37)
[2017-08-21] MEDS: GABAPENTIN 300 MG CAP PO SCH ×3 (08:19→21:36)
[2017-08-21] MEDS: METOPROLOL TARTRATE 25 MG TAB PO SCH ×2 (08:19→16:58)
--- NOTE | 2017-08-21 11:04 | Consultation ---
DATE OF CONSULTATION: August 21, 2017 REFERRING PHYSICIAN: Dr. Nuñez. I would like to thank Dr. Nuñez for asking me to see Ms. Shantel Mcginnis in consultation. REASONS FOR CONSULTATION 1. Right intertrochanteric hip fracture secondary to fall. 2. Peripheral neuropathy. 3. Patient with some chest pain. HISTORY: Ms. Shantel Mcginnis is a 77-year-old female with a history of diabetes and peripheral polyneuropathy who fell at home about 5 days prior to admission, having difficulty weightbearing. She had a negative x-ray, but MRI showed a nondisplaced fracture of the right femur intertrochanteric area. The patient underwent surgery. Yesterday, she had a little bit of chest pain and was anemic. I being asked to evaluate for rehab needs. The patient has been having some hyponatremia with sodium 124. PAST MEDICAL HISTORY: Diabetes, diabetic neuropathy, retinopathy, history of esophageal stricture, hypertension, chronic pain and osteoporosis. SURGERIES: As above. FAMILY HISTORY: Unable to obtain at this time. SOCIAL HISTORY: She lives with her daughter in a single-story home. Ambulated without any kind of assistive device prior to this. Current weightbearing precautions are touchdown weightbearing to the right lower extremity. CONSTITUTIONAL REVIEW OF SYSTEMS: Unable to obtain at this time. Yesterday, hemoglobin was 7, hematocrit 20.9. Now after transfusion, it has gone up to 9.6 and hematocrit 27.9. White cell count 21.5. Most recent sodium 131. PHYSICAL EXAMINATION: Examination is limited. Patient is sleepy right now. She is arousable, but pretty tired. Temperature 98.4, respirations 18, heart rate 97, blood pressure 140/65. The rest of the examination is limited at this time. IMPRESSION 1. Right intertrochanteric fracture. 2. Peripheral polyneuropathy of the lower extremities. 3. Electrolyte abnormalities. She has had hyponatremia, and this is being corrected. 4. History of chronic pain syndrome. PLAN: Will reassess. The patient had some chest pain before, and that is being looked at. Will see when she is a little bit more alert and see how she responds with therapy. Thank you, once again, for allowing me to participate in the care of this very interesting patient. Job#: [id number]
[2017-08-21] MEDS: RIVAROXABAN 10 MG TABLET PO SCH (16:57)
[2017-08-21] MEDS: ENOXAPARIN SOD INJ 40 MG/0.4 ML SYR SC SCH (16:58)
[2017-08-21] MEDS: DEXTROSE 50% SYRINGE 50 ML IV PRN (19:21)
[2017-08-21] MEDS: TEMAZEPAM 15 MG CAP PO SCH (21:00)
[2017-08-21] MEDS: ATORVASTATIN 40 MG TAB PO SCH (21:36)
[2017-08-22] VITALS (8 sets, daily range): BP systolic 145–183; BP diastolic 64–81
[2017-08-22] MEDS: LEVOTHYROXINE SODIUM 100 MCG TAB PO SCH (06:07)
[2017-08-22] MEDS: INSULIN REGULAR, HUMAN 100 UNIT/1 ML 3ML VIAL SQ SCH ×4 (07:30→21:00)
[2017-08-22] MEDS: PANTOPRAZOLE SODIUM 40 MG SUSPDR.PKT PO SCH (07:30)
[2017-08-22] MEDS: DEXTROSE 50% SYRINGE 50 ML IV PRN (07:30)
[2017-08-22 07:38] LABS: ALANINE AMINOTRANSFERASE 17 IU/L (0-55); ALBUMIN 2.2 g/dL (3.5-5.0); ALBUMIN/GLOBULIN RATIO 0.6 (0.8-2.0); ALKALINE PHOSPHATASE 106 IU/L (40-150); ANION GAP 15.3 mmol/L (8-16); BLOOD UREA NITROGEN 12 mg/dL (7-26); BUN/CREATININE RATIO 17 (6-25); CALCIUM 8.9 mg/dL (8.4-10.2); CARBON DIOXIDE 23 mmol/L (22-29); CHLORIDE 102 mmol/L (98-107); CREATININE, SERUM 0.71 mg/dL (0.57-1.11); EST GLOMERULAR FILTRATION RATE > 60 ML/MIN (60-); POTASSIUM 3.3 mmol/L (3.5-5.1); SODIUM 137 mmol/L (136-145)
[2017-08-22 07:42] LABS: GLUCOSE 32 mg/dL (74-118)
[2017-08-22] MEDS ORDERED: POTASSIUM CHLORIDE 20 MEQ TAB CR PO STA (07:58)
[2017-08-22] MEDS: INSULIN DETEMIR 100 UNIT/ML PEN SQ SCH ×2 (08:15→16:59)
[2017-08-22] MEDS: SODIUM CHLORIDE 0.9% 1000ML 1,000 ML IV SCH (08:32)
[2017-08-22] MEDS: CLONAZEPAM 0.5 MG TAB PO SCH (08:41)
[2017-08-22] MEDS: DICYCLOMINE HCL 10 MG CAP PO SCH (08:41)
[2017-08-22] MEDS: GABAPENTIN 300 MG CAP PO SCH ×3 (08:41→21:22)
[2017-08-22] MEDS: PANTOPRAZOLE SOD 40 MG TABEC PO SCH (08:41)
[2017-08-22] MEDS: SODIUM CHLORIDE 1 GM TAB PO SCH ×3 (08:41→21:23)
[2017-08-22] MEDS: METOPROLOL TARTRATE 25 MG TAB PO SCH ×2 (08:42→16:59)
[2017-08-22] MEDS ORDERED: FUROSEMIDE INJ 10 MG/ML 4 ML VIAL IV ONE ×2 (10:45→11:15)
[2017-08-22] MEDS ORDERED: POTASSIUM CHLORIDE 20MEQ/100ML 100 ML IV ONE (11:15)
--- NOTE | 2017-08-22 12:01 | Diagnostic Imaging Report ---
PROCEDURE: A single AP view of the chest. COMPARISON: Patients [facility], , CHEST SINGLE (PORTABLE), 08/14/2017, 20:22. INDICATIONS: WHEEZING FINDINGS: Lines/tubes: None. Lungs: Lungs are well-inflated. Mild bibasilar atelectatic changes. No definite consolidation. Mild perihilar interstitial opacities and peribronchial cuffing Pleura: There is no pleural effusion or pneumothorax. Heart and mediastinum: Cardiac silhouette is unremarkable. Mild central pulmonary venous congestion Bones: No acute bony abnormality. IMPRESSION: 1. mild perihilar interstitial opacities and peribronchial cuffing and central vascular venous congestion. This may reflect reactive airway disease versus viral infection. No definite consolidation. Tanner Singh M.D. Dictated by: Tanner Singh M.D. on 08/22/2017 at 12:00 Electronically approved by: Tanner Singh M.D. on 08/22/2017 at 12:00
[2017-08-22] MEDS ORDERED: FUROSEMIDE INJ 10 MG/ML 4 ML VIAL IV NR (14:45)
--- NOTE | 2017-08-22 15:54 | Progress Note ---
DATE: August 22, 2017 Ms. Mcginnis was seen on rounds today. She is still sleepy but much more alert now. She had a pretty decent day today with therapy, but was only able to sit up for a little bit. Her overall endurance is still quite poor. She is still tired right now. Therapy-[place], she is touchdown weightbearing. PT did work with her, and basically she was able to tolerate out of bed activities and maintain weightbearing status. However, she gets weak. Overall endurance, however, is still pretty poor and not able to tolerate full rehab level of care. Vital signs: Temperature 97.1, respirations 20, heart rate 72, blood pressure 179/80. No new labs at this time, but the hemoglobin had gone up to 9.6 yesterday. PHYSICAL EXAMINATION GENERAL: The patient is sleepy, but easily arousable. HEART: Regular. LUNGS: Fair air entry. ABDOMEN: Nondistended. EXTREMITIES: She can move all 4 extremities, but is weaker on the right leg compared to the left leg at 3 seconds. She demonstrates at least 3+/5 to 4-/5 strength in upper extremities bilaterally. In the left lower extremity, she demonstrated at least 3+/5 strength within achievable range of motion. In the right leg, she had limited movement to the right hip. She could wiggle her right ankle a little bit, demonstrating essentially 2/5 strength with hip and knee flexion and extension and 2+ with ankle dorsiflexion. IMPRESSION 1. Right hip fracture with Gamma nail fixation. 2. Touchdown weightbearing to the right lower extremity. 3. Patient with anemia. 4. Peripheral neuropathy. PLAN: I spoke with her daughter at length. She is probably more suited for skilled at this time, given her lack of endurance. Daughter agrees as well. She should be able to handle therapy at that level. Job#: [id number]
[2017-08-22] MEDS: RIVAROXABAN 10 MG TABLET PO SCH (16:57)
[2017-08-22] MEDS: TEMAZEPAM 15 MG CAP PO SCH (21:00)
[2017-08-22] MEDS: ATORVASTATIN 40 MG TAB PO SCH (21:22)
[2017-08-23] VITALS (7 sets, daily range): BP systolic 131–191; BP diastolic 63–82
[2017-08-23] MEDS: LEVOTHYROXINE SODIUM 100 MCG TAB PO SCH (05:57)
[2017-08-23 07:17] LABS: ALANINE AMINOTRANSFERASE 27 IU/L (0-55); ALBUMIN 2.2 g/dL (3.5-5.0); ALBUMIN/GLOBULIN RATIO 0.6 (0.8-2.0); ALKALINE PHOSPHATASE 102 IU/L (40-150); ANION GAP 15.7 mmol/L (8-16); BLOOD UREA NITROGEN 15 mg/dL (7-26); BUN/CREATININE RATIO 19 (6-25); CALCIUM 8.6 mg/dL (8.4-10.2); CARBON DIOXIDE 24 mmol/L (22-29); CHLORIDE 96 mmol/L (98-107); CREATININE, SERUM 0.79 mg/dL (0.57-1.11); EST GLOMERULAR FILTRATION RATE > 60 ML/MIN (60-); GLUCOSE 201 mg/dL (74-118); PHOSPHORUS 3.2 MG/DL (2.3-4.7); POTASSIUM 3.7 mmol/L (3.5-5.1); SODIUM 132 mmol/L (136-145)
[2017-08-23] MEDS: INSULIN REGULAR, HUMAN 100 UNIT/1 ML 3ML VIAL SQ SCH ×4 (07:30→21:45)
[2017-08-23 08:05] LABS: MAGNESIUM 0.9 MG/DL (1.3-2.1)
[2017-08-23] MEDS: PANTOPRAZOLE SOD 40 MG TABEC PO SCH (09:00)
[2017-08-23] MEDS: DICYCLOMINE HCL 10 MG CAP PO SCH (09:41)
[2017-08-23] MEDS: CLONAZEPAM 0.5 MG TAB PO SCH (09:41)
[2017-08-23] MEDS: METOPROLOL TARTRATE 25 MG TAB PO SCH ×2 (09:42→17:47)
[2017-08-23] MEDS: INSULIN DETEMIR 100 UNIT/ML PEN SQ SCH ×2 (09:42→17:00)
[2017-08-23] MEDS: SODIUM CHLORIDE 1 GM TAB PO SCH ×2 (09:42→17:47)
[2017-08-23] MEDS: GABAPENTIN 300 MG CAP PO SCH ×3 (09:42→21:45)
[2017-08-23] MEDS ORDERED: MAGNESIUM SULFATE 2GM/50ML 150 ML IV ONE (14:00)
[2017-08-23] MEDS: MAGNESIUM SULF 1GRAM/DEXTROSE 100 ML IV SCH ×3 (14:15→17:44)
[2017-08-23] MEDS ORDERED: HYDROCODONE/APAP 5MG-325MG TAB PO PRN (16:00)
[2017-08-23] MEDS: RIVAROXABAN 10 MG TABLET PO SCH (17:47)
[2017-08-23] MEDS: TEMAZEPAM 15 MG CAP PO SCH (21:00)
[2017-08-23] MEDS: ATORVASTATIN 40 MG TAB PO SCH (21:45)
[2017-08-23] MEDS: ACETAMINOPHEN 325 MG TAB PO PRN (21:49)
[2017-08-24] VITALS: BP 114/56
[2017-08-24 03:41] VITALS: BP 114/56
[2017-08-24 04:00] VITALS: BP 149/82
[2017-08-24] MEDS: LEVOTHYROXINE SODIUM 100 MCG TAB PO SCH (05:44)
[2017-08-24] MEDS: INSULIN REGULAR, HUMAN 100 UNIT/1 ML 3ML VIAL SQ SCH ×3 (07:30→16:26)
[2017-08-24] MEDS: PANTOPRAZOLE SOD 40 MG TABEC PO SCH (08:15)
[2017-08-24 08:33] VITALS: BP 181/82
[2017-08-24] MEDS: INSULIN DETEMIR 100 UNIT/ML PEN SQ SCH ×2 (09:00→16:27)
[2017-08-24] MEDS: DICYCLOMINE HCL 10 MG CAP PO SCH (09:24)
[2017-08-24] MEDS: METOPROLOL TARTRATE 25 MG TAB PO SCH ×2 (09:24→16:03)
[2017-08-24] MEDS: GABAPENTIN 300 MG CAP PO SCH ×2 (09:24→15:00)
[2017-08-24] MEDS: SODIUM CHLORIDE 1 GM TAB PO SCH ×2 (09:24→16:03)
[2017-08-24] MEDS: CLONAZEPAM 0.5 MG TAB PO SCH (09:26)
[2017-08-24 11:39] VITALS: BP 145/68
--- NOTE | 2017-08-24 13:41 | Discharge Summary ---
A 77-year-old female patient admitted with the right hip fracture. Patient after admission was having severe hyponatremia. After correction of the hyponatremia, patient underwent a right intratrochanteric hip fracture surgery. Patient underwent gamma nail fixation. Patient also had fever from fracture and surgery, treated with Tylenol and DVT prophylaxis. Patient will be discharged to shelter today. DISCHARGE DIAGNOSES 1. Fall with right hip fracture status post gamma nail fixation. 2. Hyponatremia. 3. Diabetes mellitus. DISCHARGE MEDICATIONS: Reconciled. DIET: Diabetic diet. YIN LUGO MD Job#: [id number] [facility]AK
[2017-08-24] MEDS ORDERED: NORCO 5-325 TA1 EACH PO (14:12)
[2017-08-24] MEDS ORDERED: TEMAZEPAM15 MG PO (14:24)
[2017-08-24] MEDS ORDERED: GABAPENTIN300 MG PO (14:25)
[2017-08-24] MEDS ORDERED: FUROSEMIDE 20 MG TAB PO SCH (15:00)
[2017-08-24 15:24] VITALS: BP 129/63
[2017-08-24] MEDS: RIVAROXABAN 10 MG TABLET PO SCH (16:03)
== END 2017-08-24 16:53 | disposition home health service (06) | DRG 481 ==
LOC: ER 14:32 → MED/SURG 21:54
PROVIDERS: ADMIT Internal Medicine; ATTEND Internal Medicine
PROC: 0QH636Z Insertion of Intramedullary Internal Fixation Device into Right Upper Femur, Percutaneous Approach (ICD-10-PCS; principal; 2017-08-19 08:30)
PROC: 30233N1 Transfusion of Nonautologous Red Blood Cells into Peripheral Vein, Percutaneous Approach (ICD-10-PCS; 2017-08-20)
DX: S72.144A Nondisplaced intertrochanteric fracture of right femur, initial encounter for closed fracture (principal); E22.2 Syndrome of inappropriate secretion of antidiuretic hormone; E11.40 Type 2 diabetes mellitus with diabetic neuropathy, unspecified; D64.9 Anemia, unspecified; E83.42 Hypomagnesemia; J98.11 Atelectasis; W01.0XXA Fall on same level from slipping, tripping and stumbling without subsequent striking against object, initial encounter; Y92.019 Unspecified place in single-family (private) house as the place of occurrence of the external cause; E03.9 Hypothyroidism, unspecified; E11.319 Type 2 diabetes mellitus with unspecified diabetic retinopathy without macular edema; G89.4 Chronic pain syndrome; M81.0 Age-related osteoporosis without current pathological fracture; I10 Essential (primary) hypertension; R07.9 Chest pain, unspecified; R50.82 Postprocedural fever; Z79.82 Long term (current) use of aspirin; Z79.02 Long term (current) use of antithrombotics/antiplatelets; Z79.4 Long term (current) use of insulin
CPT/HCPCS: 36415; 36430; 70450; 71045; 72170; 72195; 76001; 80048; 80053; 80061; 81001; 82306; 82550; 82553; 82947; 82948; 83735; 84100; 84443; 84484; 84550; 85014; 85018; 85025; 85610; 85730; 86850; 86900; 86920; 87086; 93005; 93306; 93971; 97139; 99284; C1713; J0360; J0690; J1100; J1650; J1940; J2001; J2270; J2405; J3475; J3480; J7030; J7050; J7799; P9016